=== PATIENT | female | born 1980 | race Caucasian/White ===

== ENCOUNTER 2018-05-11 09:12 | Outpatient (CLI) | payer OTHER ==
[2018-05-11 10:09] LABS: BASOPHILS % (AUTO) 0.8 % (0.0-2.0); EOSINOPHILS # (AUTO) 0.2 K/uL (0.0-0.4); EOSINOPHILS % (AUTO) 3.6 % (0.0-4.0); HEMOGLOBIN 14.2 g/dL (12.0-16.0); LYMPHOCYTES # (AUTO) 1.6 K/uL (1.0-5.5); LYMPHOCYTES % (AUTO) 28.9 % (20.5-51.5); MEAN CORPUSCULAR HEMOGLOBIN 31 pg (27-31); MEAN CORPUSCULAR HGB CONC 34 % (32-36); MEAN CORPUSCULAR VOLUME 92 fL (79.0-98.0); MONOCYTES # (AUTO) 0.2 K/uL (0.0-1.0); MONOCYTES % (AUTO) 3.4 % (1.7-9.3); NEUTROPHILS # (AUTO) 3.5 K/uL (1.8-7.7); NEUTROPHILS % (AUTO) 63.3 % (40.0-70.0); PLATELET COUNT (AUTO) 183 K/uL (130-430); RED BLOOD CELL COUNT(AUTO) 4.56 MIL/uL (4.2-6.2); RED CELL DISTRIBUTION WIDTH 13.2 % (9.0-15.0); WHITE BLOOD COUNT (AUTO) 5.5 K/uL (4.8-10.8)
[2018-05-11 10:36] LABS: CALCIUM 9.3 mg/dL (8.4-11.0); CREATININE 0.71 mg/dL (0.55-1.30); POTASSIUM 4.2 mmol/L (3.5-5.1); THYROID STIMULATING HORMONE 41.19 uIu/mL (0.34-4.82); TOTAL BILIRUBIN 0.6 mg/dL (0.0-1.0); URIC ACID 3.1 mg/dL (2.4-7.0)
[2018-05-11 11:26] LABS: ERYTHROCYTE SEDIMENTATION RATE 6 MM/HR (0-20)
[2018-05-12 07:22] LABS: HEMOGLOBIN A1C 5.3 % (4.8-5.6)
[2018-05-14 12:11] LABS: VIT D,1, 25-DIHYDROXY 61.1 pg/mL (19.9-79.3)
== END 2018-05-11 18:30 | disposition home or self-care (01) ==
LOC: SLB 09:12
PROVIDERS: ATTEND Internal Medicine
DX: Z00.00 Encounter for general adult medical examination without abnormal findings (principal)
CPT/HCPCS: 36415; 80053; 80061; 82306; 82607; 83036; 84443-TC; 84550-TC; 85025; 85651-TC

== ENCOUNTER 2018-06-07 10:54 | Outpatient (CLI) | payer OTHER | END 2018-06-07 19:09 | disposition home or self-care (01) | LOC: SUS 10:54 | PROVIDERS: ATTEND Internal Medicine | DX: E04.8 Other specified nontoxic goiter (principal); N60.12 Diffuse cystic mastopathy of left breast; N60.11 Diffuse cystic mastopathy of right breast | CPT/HCPCS: 76536-TC; 76641 ==

== ENCOUNTER → 2018-06-29 | Outpatient (CLI) | payer OTHER | END | disposition home or self-care (01) | LOC: SMI 09:50 | PROVIDERS: ATTEND Orthopaedic Surgery | DX: M25.572 Pain in left ankle and joints of left foot (principal); R60.9 Edema, unspecified | CPT/HCPCS: 73721 ==